=== PATIENT | female | born 1985 | race Caucasian/White ===

== ENCOUNTER → 2021-12-28 11:15 | Outpatient (CLI) | payer OTHER, SELFPAY ==
[2021-12-28 18:23] LABS: Add Manual Diff / Slide Review NO; Basophils Absolute Auto 0 /uL (0-100); Basophils Percent Auto 0.3 % (0-2); Eosinophils Absolute Auto 100 /uL (0-450); Hematocrit 38.1 % (36-46); Hemoglobin 13.2 g/dL (12.0-16.0); Lymphocytes Absolute Auto 1800 /uL (1100-4500); Lymphocytes Percent Auto 29.8 % (25-40); Mean Corpuscular HGB Conc 34.6 % (30-36); Mean Corpuscular Hemoglobin 30.2 PG (26-34); Mean Corpuscular Volume 87.3 fL (80-100); Monocytes Absolute Auto 400 /uL (0-900); Neutrophils Absolute Auto 3900 /uL (1500-7000); Neutrophils Percent Auto 62.9 % (50-75); Platelet Count 267 X10^3/uL (150-400); Red Blood Cell Count 4.37 X10^6/uL (4.0-5.2); Red Cell Distribution Width 12.7 % (11.6-14.8); White Blood Cell Count 6.2 X10^3/uL (4.5-11.0)
[2021-12-28 18:29] LABS: Alanine Aminotransferase 18 IU/L (<35); Albumin 4.8 g/dL (3.5-5.0); Albumin Globulin Ratio 1.5 (1.0-2.8); Alkaline Phosphatase 72 U/L (38-126); Aspartate Aminotransferase 25 IU/L (14-36); BUN Creatinine Ratio 18.5 (6-22); Bilirubin Total 0.7 mg/dL (0.2-1.3); Blood Urea Nitrogen 10 mg/dL (7-17); Calcium 9.5 mg/dL (8.4-10.2); Carbon Dioxide 29 mmol/L (22-32); Chloride 105 mmol/L (98-107); Estimated Glomerular Filt Rate > 60.0 mL/min (>60); Globulin 3.2 g/dL (1.7-4.1); Glucose 84 mg/dL (70-100); HEMOLYSIS 18 (0-50); Sodium 141 mmol/L (137-145)
[2021-12-28 18:30] LABS: HEMOLYSIS 21 (0-50); Iron 98 ug/dL (37-170)
[2021-12-28 18:44] LABS: Vitamin D 25 Hydroxy (D3) 45.4 ng/mL (30.0-100.0)
[2021-12-28 18:47] LABS: Percent Iron Saturation 29 % (15-50); Total Iron Binding Capacity 334 ug/dL (265-497); Transferrin 255 mg/dL (206-381)
[2021-12-28 19:04] LABS: TSH w/ Reflex to FT4 1.39 uIU/mL (0.47-4.68)
[2021-12-28 19:21] LABS: Vitamin B12 671 pg/mL (239-931)
== END ==
PROVIDERS: PCP Physician Assistant; Visit Provider Physician Assistant
DX: Z00.01 Encounter for general adult medical examination with abnormal findings (principal); L40.4 Guttate psoriasis; L65.9 Nonscarring hair loss, unspecified; R53.83 Other fatigue; Z86.39 Personal history of other endocrine, nutritional and metabolic disease
CPT/HCPCS: 80053; 82306; 82607; 83540; 83550; 84443; 85025

== ENCOUNTER → 2024-07-01 10:41 | Outpatient (CLI) | payer OTHER, SELFPAY ==
[2024-07-01 19:58] LABS: Add Manual Diff / Slide Review NO; Basophils Absolute Auto 0 /uL (0-100); Basophils Percent Auto 0.4 % (0-2); Eosinophils Absolute Auto 100 /uL (0-450); Eosinophils Percent Auto 1.3 % (2-4); Hematocrit 40.7 % (36-46); Hemoglobin 13.6 g/dL (12.0-16.0); Lymphocytes Absolute Auto 2200 /uL (1100-4500); Lymphocytes Percent Auto 30.3 % (25-40); Mean Corpuscular HGB Conc 33.4 % (30-36); Mean Corpuscular Hemoglobin 29.8 PG (26-34); Mean Corpuscular Volume 89.2 fL (80-100); Monocytes Absolute Auto 600 /uL (0-900); Monocytes Percent Auto 8.8 % (3-14); Neutrophils Absolute Auto 4200 /uL (1500-7000); Neutrophils Percent Auto 59.2 % (50-75); Platelet Count 252 X10^3/uL (150-400); Red Blood Cell Count 4.56 X10^6/uL (4.0-5.2); Red Cell Distribution Width 13.5 % (11.6-14.8); White Blood Cell Count 7.2 X10^3/uL (4.5-11.0)
[2024-07-01 20:08] LABS: Alanine Aminotransferase 18 IU/L (<35); Albumin 4.2 g/dL (3.5-5.0); Albumin Globulin Ratio 1.4 (1.0-2.8); Alkaline Phosphatase 99 U/L (38-126); Aspartate Aminotransferase 21 IU/L (14-36); BUN Creatinine Ratio 16.7 (6-22); Bilirubin Total 0.6 mg/dL (0.2-1.3); Blood Urea Nitrogen 11 mg/dL (7-17); Calcium 9.4 mg/dL (8.4-10.2); Carbon Dioxide 27 mmol/L (22-32); Chloride 107 mmol/L (98-107); Estimated Glomerular Filt Rate > 60 mL/min (>60); Globulin 2.9 g/dL (1.7-4.1); Glucose 92 mg/dL (70-100); HEMOLYSIS < 15 (0-50); Sodium 139 mmol/L (137-145); Total Protein 7.1 g/dL (6.3-8.2)
[2024-07-01 20:35] LABS: TSH w/ Reflex to FT4 1.21 uIU/mL (0.47-4.68)
== END ==
PROVIDERS: PCP Family Medicine; Visit Provider Family Medicine
DX: L40.4 Guttate psoriasis (principal); Z86.39 Personal history of other endocrine, nutritional and metabolic disease; R22.42 Localized swelling, mass and lump, left lower limb; R53.83 Other fatigue; L65.9 Nonscarring hair loss, unspecified
CPT/HCPCS: 80053; 84443; 85025

== ENCOUNTER → 2024-07-08 13:44 | Outpatient (CLI) | payer OTHER, SELFPAY ==
--- NOTE | 2024-07-08 13:45 | DI.US.S_ITS ---
PROCEDURE: US EXTREMITY NONVASC LOWER RT INDICATIONS: PALPABLE LUMPS UPPER THIGH TECHNIQUE: Real-time scanning was performed of the right upper thigh, with image documentation. COMPARISON: [facility], , EXTREMITY NONVASC LOWER LT, 07/08/2024, 14:00. FINDINGS: At the patient's area of concern, in the right upper thigh, there are 3 hyperechoic, well-circumscribed lesion with minimal internal vascularity in the subcutaneous fat, with the largest measuring 2.5 x 1.2 x 2.8 cm, representing lipoma. IMPRESSION: 3 lipoma in the right upper thigh, correlating to patient's area of concern. Dictated by: Rosalia Duke M.D. on 07/09/2024 at 13:57 Approved by: Rosalia Duke M.D. on 07/09/2024 at 13:58
--- NOTE | 2024-07-08 13:45 | DI.US.S_ITS ---
PROCEDURE: US EXTREMITY NONVASC LOWER LT INDICATIONS: PALPABLE LUMPS UPPER THIGH TECHNIQUE: Real-time scanning was performed of the left upper thigh, with image documentation. COMPARISON: None. FINDINGS: At patient's area of concern, in the left posterior upper thigh, there are 4 hyperechoic, well-circumscribed lesions with minimal internal vascularity in the subcutaneous fat, representing lipoma. IMPRESSION: 4 lipoma in the left posterior upper thigh, correlating to patient's area of concern. Dictated by: Rosalia Duke M.D. on 07/09/2024 at 13:55 Approved by: Rosalia Duke M.D. on 07/09/2024 at 13:56
== END ==
PROVIDERS: PCP Family Medicine; Referring Provider Family Medicine; Visit Provider Family Medicine
DX: D17.23 Benign lipomatous neoplasm of skin and subcutaneous tissue of right leg (principal); D17.24 Benign lipomatous neoplasm of skin and subcutaneous tissue of left leg
CPT/HCPCS: 76882